=== PATIENT | female | born 1955 | race Caucasian/White ===

== ENCOUNTER 2016-04-23 16:23 | Emergency (ER) | payer MEDICARE, OTHER ==
[~2016-04-23] VITALS: Ht 165.1 cm; Wt 65.7 kg
[2016-04-23 16:49] VITALS: BP 138/86; PULSE 95; RESP 18; TEMP 98.9; O2SAT 99
[2016-04-23] MEDS ORDERED: METH750T PO (22:52)
[2016-04-23] MEDS ORDERED: LEVO50TA4 PO (22:52)
[2016-04-23] MEDS ORDERED: OMEP20TA PO (22:52)
[2016-04-23] MEDS ORDERED: GABA300C5 PO (22:52)
[2016-04-23] MEDS ORDERED: AMIT150T PO (22:52)
[2016-04-23] MEDS ORDERED: VENL75TA2 PO (22:52)
[2016-04-23] MEDS ORDERED: KETOROLAC TROMETHAMINE 30 MG/ML (IVP) VIAL IV PUSH ONE (23:00)
[2016-04-23] MEDS ORDERED: SODIUM CHLOR 0.9% 1000 ML INJ 1,000 ML IV ONE (23:00)
[2016-04-23 23:50] LABS: AUTOMATED NEUTROPHIL # 3.8 TH/MM3 (1.8-7.7); BASOPHIL # 0.1 TH/MM3 (0-0.2); EOSINOPHIL # 0.1 TH/MM3 (0-0.4); HEMATOCRIT 38.3 % (35.0-46.0); HEMO FLAGS DIFF FINAL; LYMPH % 34.4 % (9.0-44.0); LYMPHOCYTE # 2.4 TH/MM3 (1.0-4.8); MEAN CELL VOLUME 89.5 FL (80.0-100.0); MEAN CORPUSCULAR HEMOGLOBIN 30.7 PG (27.0-34.0); MEAN CORPUSCULAR HGB CONC 34.3 % (32.0-36.0); MONO % 8.4 % (0.0-8.0); NEUT % 54.2 % (16.0-70.0); PLATELET COUNT 256 TH/MM3 (150-450); RED BLOOD COUNT 4.28 MIL/MM3 (4.00-5.30); RED CELL DISTRIBUTION WIDTH 10.9 % (11.6-17.2)
[2016-04-23 23:53] LABS: BLOOD, URINE TRACE (NEG); GLUCOSE,URINE NEG (NEG); KETONE, URINE NEG (NEG); NITRITE,URINE NEG (NEG); PH, URINE 6.5 (5.0-8.5)
[2016-04-23 23:58] LABS: POTASSIUM 3.8 MEQ/L (3.5-5.1)
[2016-04-24 00:01] LABS: BICARBONATE 30.5 MEQ/L (21.0-32.0)
[2016-04-24 00:05] LABS: METHOD OF COLLECTION CLEAN CATCH; URINE COLOR YELLOW (YELLW/STRAW)
[2016-04-24 00:06] VITALS: BP 136/80; PULSE 78; RESP 18; O2SAT 98
[2016-04-24 00:08] LABS: COMMENT (UR) CULT NOT INDICATED; CULTURE IF INDICATED CULT NOT INDICATED; RBC, URINE 0-3 /hpf (0-3); SQUAMOUS EPITHELIAL CELL URINE 0-5 /hpf (0-5)
--- NOTE | 2016-04-24 00:28 | PD ---
HPI Chief Complaint: Complaint Time Seen by Provider: 22:58 Travel History International Travel<30 days: No Contact w/Intl Traveler<30days: No Traveled to known affect area: No History of Present Illness HPI 60 year-old female presents to the emergency department for complaint of pubic pressure and reportedly was told by her primary care provider to come to the hospital for management of a Pseudomonas urinary tract infection. Patient reports that last week she was seen by her primary care provider urine specimen was collected and she was diagnosed with urinary tract infection and started on Cipro antibiotic. Patient was reportedly informed on Saturday that the organism was not susceptible to the oral antibiotic and that she had a pseudomonas organism and that she needed to to begin IV antibiotics. Patient states over the weekend she was not able to be contacted by her primary and arrangements were not made for IV antibiotics and she was not told to come to the hospital at that time. Patient called her provider today stating she did not feel improved and was encouraged to come to the emergency room for IV antibiotics. Patient's had no fever or chills. Patient is not had any vomiting. Patient has had some dysuria but states that those symptoms have improved since she was on Cipro antibiotic. Patient denies other concerns or complaints. Patient has history of fibromyalgia. [facility] Past Medical History Narrative Medical Fibromyalgia GERD hypothyroidism appendectomy cholecystectomy hysterectomy tonsillectomy no tobacco use nursing notes reviewed Diminished Hearing: No Fibromyalgia: Yes GERD: Yes Thyroid Disease: Yes Tetanus Vaccination: Unknown Influenza Vaccination: Yes ?: Not LMP: [place]- Menopausal: Yes Past Surgical History Abdominal Surgery: Yes Appendectomy: Yes Cholecystectomy: Yes Gynecologic Surgery: Yes (hysterectomy) Hysterectomy: Yes Tonsillectomy: Yes Social History Alcohol Use: No Tobacco Use: No Substance Use: No Allergies-Medications (Allergen,Severity, Reaction): Coded Allergies: Tetracycline (Verified Adverse Reaction, Severe, N/V, pain, 04/23/16) Reported Meds & Prescriptions Reported Meds & Active Scripts Active Reported Omeprazole 20 Mg Tab 20 Mg PO DAILY Amitriptyline (Amitriptyline HCl) 150 Mg Tab 150 Mg PO HS Methocarbamol 750 Mg Tab 750 Mg PO TID Gabapentin 300 Mg Cap 300 Mg PO TID Venlafaxine ER 24 HR (Venlafaxine HCl) 75 Mg Tab 75 Mg PO DAILY Levothyroxine (Levothyroxine Sodium) 50 Mcg Tab 50 Mcg PO DAILY Review of Systems Except as stated in HPI: all other systems reviewed are Neg General / Constitutional: No: Fever, Chills HENT: No: Congestion Cardiovascular: No: Chest Pain or Discomfort Respiratory: No: Shortness of Breath Gastrointestinal: Positive: Nausea, Abdominal Pain (suprapubic pressure) Genitourinary: No: Dysuria, Flank Pain Musculoskeletal: No: Myalgias, Arthralgias Skin: No Rash Neurologic: No: Weakness Psychiatric: Positive: Anxiety Hematologic/Lymphatic: No: Easy Bruising Physical Exam Narrative GENERAL: Well-developed well-nourished female in no acute distress no respiratory distress SKIN: Warm and dry. HEAD: Normocephalic. EYES: No scleral icterus. No injection or drainage. NECK: Supple, trachea midline. No JVD or lymphadenopathy. CARDIOVASCULAR: Regular rate and rhythm without murmurs, gallops, or rubs. RESPIRATORY: Breath sounds equal bilaterally. No accessory muscle use. GASTROINTESTINAL: Abdomen soft, non-tender, nondistended. Mild suprapubic tenderness to direct palpation without guarding or rebound MUSCULOSKELETAL: No cyanosis, or edema. BACK: Nontender without obvious deformity. No CVA tenderness. Data Data Last Documented VS Vital Signs Date Time Temp Pulse Resp B/P Pulse Ox O2 Delivery O2 Flow Rate FiO2 04/24/16 02:02 74 18 98 04/24/16 02:01 132/84 Room Air 04/23/16 16:49 98.9 Orders Complete Blood Count With Diff (04/23/16 22:58) Basic Metabolic Panel (Bmp) (04/23/16 22:58) Urinalysis - C+S If Indicated (04/23/16 22:58) Blood Culture (04/23/16 22:58) Sodium Chlor 0.9% 1000 Ml Inj (Ns 1000 M (04/23/16 23:00) Ketorolac Inj (Toradol Inj) (04/23/16 23:00) Lactic Acid (04/24/16 00:22) Urine Culture (04/24/16 00:22) Ct Abd/Pel W/O Iv Contrast (04/24/16 ) Labs Laboratory Tests Test 04/23/16 04/23/16 04/24/16 23:10 23:30 00:45 White Blood Count 7.0 TH/MM3 Red Blood Count 4.28 MIL/MM3 Hemoglobin 13.1 GM/DL Hematocrit 38.3 % Mean Corpuscular Volume 89.5 FL Mean Corpuscular Hemoglobin 30.7 PG Mean Corpuscular Hemoglobin 34.3 % Concent Red Cell Distribution Width 10.9 % Platelet Count 256 TH/MM3 Mean Platelet Volume 7.6 FL Neutrophils (%) (Auto) 54.2 % Lymphocytes (%) (Auto) 34.4 % Monocytes (%) (Auto) 8.4 % Eosinophils (%) (Auto) 2.0 % Basophils (%) (Auto) 1.0 % Neutrophils # (Auto) 3.8 TH/MM3 Lymphocytes # (Auto) 2.4 TH/MM3 Monocytes # (Auto) 0.6 TH/MM3 Eosinophils # (Auto) 0.1 TH/MM3 Basophils # (Auto) 0.1 TH/MM3 CBC Comment DIFF FINAL Differential Comment Sodium Level 141 MEQ/L Potassium Level 3.8 MEQ/L Chloride Level 103 MEQ/L Carbon Dioxide Level 30.5 MEQ/L Anion Gap 8 MEQ/L Blood Urea Nitrogen 10 MG/DL Creatinine 0.88 MG/DL Estimat Glomerular Filtration 66 ML/MIN Rate Random Glucose 90 MG/DL Calcium Level 9.2 MG/DL Urine Collection Type CLEAN CATCH Urine Color YELLOW Urine Turbidity CLEAR Urine pH 6.5 Urine Specific [place] 1.008 Urine Protein NEG mg/dL Urine Glucose (UA) NEG mg/dL Urine Ketones NEG mg/dL Urine Occult Blood TRACE Urine Nitrite NEG Urine Bilirubin NEG Urine Leukocyte Esterase NEG Urine RBC 0-3 /hpf Urine Squamous Epithelial 0-5 /hpf Cells Microscopic Urinalysis Comment CULT NOT INDICATED Lactic Acid Level 0.3 mmol/L MDM Medical Decision Making Medical Screen Exam Complete: Yes Emergency Medical Condition: Yes Medical Record Reviewed: Yes Interpretation(s) UA: trace blood otherwise values in normal range Last Impressions Abdomen/Pelvis CT 04/24/16 0000 Signed Impressions: Service Date/Time: Sunday, April 24, 2016 00:35 - CONCLUSION: 1. Moderate amount stool within the colon. 2. Otherwise unremarkable. 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 Patient is stable for outpatient management and no antibiotic administration at this time. Patient is encouraged to follow up closely with her primary care provider. Unclear source of abdominal pain but does not appear to be infectious in nature. Patient is noted to have some moderate stool for possible constipation by imaging study. Patient encouraged to add MiraLAX to bowel regimen. Diagnosis Primary Impression: Abdominal pain Qualified Code: R10.30 - Lower abdominal pain Referrals: Primary Care Physician call for appointment Patient Instructions: General Instructions Additional Instructions: Increase fluid hydration Use MiraLAX to assist with bowel movement Monitor temperature for fever take acetaminophen/Tylenol for fever 100.4F or greater Follow-up with primary care provider Return to the emergency for any concerns or change in condition Med/Other Pt SpecificInfo: No Change to Meds Disposition: 01 DISCHARGE HOME Condition: Stable Thu Quiroz MD Apr 24, 2016 00:27
--- NOTE | 2016-04-24 00:53 | RADHPO ---
EXAM DATE/TIME: 04/24/2016 00:35 [facility] COMPARISON: No previous studies available for comparison. INDICATIONS : Pubic pressure and pain. ORAL CONTRAST: No oral contrast ingested. RADIATION DOSE: 12.38 CTDIvol (mGy) MEDICAL HISTORY : None SURGICAL HISTORY : Appendectomy. Cholecystectomy.Hysterectomy. ENCOUNTER: Initial ACUITY: 2 weeks PAIN SCALE: 4/10 LOCATION: Bilateral lower quadrant TECHNIQUE: Volumetric scanning of the abdomen and pelvis was performed. Using automated exposure control and ad justment of the mA and/or kV according to patient size, radiation dose was kept as low as reasonably achievable to obtain optimal diagnostic quality images. FINDINGS: Patient is status post hysterectomy cholecystectomy and appendectomy. There is a cyst at the lower po le of the left kidney measuring 1.1 cm. No hydronephrosis or nephrolithiasis. Bladder unremarkable. T here is a moderate amount of stool noted throughout the colon. Spleen, pancreas, adrenal glands, live r, stomach and small bowel are unremarkable. No adenopathy or aneurysm. Osseous structures are intact . CONCLUSION: 1. Moderate amount stool within the colon. 2. Otherwise unremarkable. Richard Vance MD on April 24, 2016 at 0:50 Board Certified Radiologist. This report was verified electronically.
[2016-04-24 02:01] VITALS: BP 132/84; PULSE 76; RESP 18; O2SAT 98
== END 2016-04-24 02:08 | disposition home or self-care (01) ==
LOC: PHED 16:23
DX: R10.33 Periumbilical pain (principal); R82.90 Unspecified abnormal findings in urine
CPT/HCPCS: 74176; 80048; 81001; 83605; 85025; 87040; 87086; 96361; 96374; 99284; J1885; J7030